=== PATIENT | male | born 1980 | race Hispanic/Latino ===

== ENCOUNTER 2024-03-09 11:15 | Emergency (ER) | payer OTHER ==
[~2024-03-09] VITALS: Ht 182.9 cm; Wt 88.5 kg
[2024-03-09] MEDS ORDERED: IOPAMIDOL 370 MG/ML 100 ML INFUS..BTL INJ ONE (12:24)
[2024-03-09] MEDS: SODIUM CHLORIDE 0.9% 1000ML 1,000 ML IV STA (13:09)
[2024-03-09 13:16] VITALS: PULSE 89; RESP 16; TEMP 98.6; O2SAT 99
[2024-03-09 13:20] LABS: BASOPHILS % 0.3 % (0.0-1.0); EOSINOPHILS # (AUTO) 0.2 (0.0-0.4); EOSINOPHILS % 1.6 % (0.0-6.0); HEMATOCRIT 31.4 % (38.2-49.6); HEMOGLOBIN 9.4 g/dL (14.0-18.0); LYMPHOCYTES % 8.2 % (18.0-39.1); MEAN CORPUSCULAR HEMOGLOBIN 23.1 pg (28-32); MEAN CORPUSCULAR HGB CONC 29.9 g/dL (31-35); MEAN CORPUSCULAR VOLUME 77.1 fL (81-99); MONOCYTES # (AUTO) 1.2 (0.2-0.8); MONOCYTES % 9.9 % (4.4-11.3); NEUTROPHILS # (AUTO) 9.5 (2.1-6.9); NEUTROPHILS % 79.3 % (38.7-80.0); PLATELET COUNT 384 x10e3/uL (140-360); RED BLOOD COUNT 4.07 x10e6/uL (4.3-5.7); RED CELL DISTRIBUTION WIDTH 17.1 % (11.7-14.4)
[2024-03-09 13:30] LABS: INR 1.34; PROTHROMBIN TIME 17.3 seconds (11.9-14.5)
[2024-03-09 13:31] LABS: PARTIAL THROMBOPLASTIN TIME 43.1 seconds (23.8-35.5)
[2024-03-09 13:36] LABS: ALBUMIN 2.4 g/dL (3.5-5.0); ALBUMIN/GLOBULIN RATIO 0.4 (0.8-2.0); BILIRUBIN,TOTAL 0.9 mg/dL (0.2-1.2); CALCIUM 9.1 mg/dL (8.4-10.2); CREATININE, SERUM 0.79 mg/dL (0.72-1.25)
== END 2024-03-09 15:10 | disposition home or self-care (01) ==
LOC: ER 11:36
DX: R22.1 Localized swelling, mass and lump, neck (principal)
CPT/HCPCS: 36415; 70491; 71260; 74177; 80053; 85025; 85610; 85730; 99283; J7030; Q9967